=== PATIENT | female | born 1960 | race Caucasian/White ===

== ENCOUNTER → 2020-01-08 | Outpatient (CLI) | payer OTHER ==
--- NOTE | 2020-01-16 12:10 | ECHOF ---
Referral Reason:Q25.0 Patent ductus arteriosus MEASUREMENTS -------- HEIGHT: 170.2 cm WEIGHT: 122.5 kg BP: RVIDd: 3.2 cm (< 3.3) IVSd: 1.1 cm (0.6 - 1.1) LVIDd: 4.9 cm (3.9 - 5.3) LVPWd: 1.2 cm (0.6 - 1.1) IVSs: 1.7 cm LVIDs: 2.2 cm LVPWs: 1.5 cm LA Diam: 4.9 cm (2.7 - 3.8) LAESV Index (A-L): 16.61 ml/m Ao Diam: 2.7 cm (2.0 - 3.7) AV Cusp: 2.2 cm (1.5 - 2.6) LA Diam: 4.0 cm (2.7 - 3.8) MV EXCURSION: 16.312 mm (> 18.000) MV EF SLOPE: 55 mm/s (70 - 150) EPSS: 0.6 cm MV E William: 0.54 m/s MV DecT: 149 ms MV A William: 0.93 m/s MV E/A Ratio: 0.58 RAP: 5.00 mmHg RVSP: 23.57 mmHg FINDINGS -------- Sinus rhythm. This was a technically adequate study. The left ventricular size is normal. There is borderline concentric left ventricular hypertrophy. Overall left ventricular systolic function is normal with, an EF between 55 - 60 %. The diastolic filling pattern is normal for the age of the patient 9.61. The right ventricle is normal in size. The left atrium is moderately dilated. Normal LA size by volume 22+/-6 ml/m2. The right atrial size is normal. Unable to visualize I.A.S. The aortic valve is trileaflet and appears structurally normal. The mitral valve is normal. The mitral valve leaflets are mildly thickened. There is trace mitral regurgitation. The tricuspid valve appears structurally normal. Mild tricuspid regurgitation present. Right vent ricular systolic pressure is normal at < 35 mmHg. Pulmonic valve appears structurally normal. Trace/mild (physiologic) pulmonic regurgitation. The aortic root size is normal. Normal inferior vena cava with normal inspiratory collapse consistent with estimated right atrial pre ssure of 5 mmHg. There is no pericardial effusion. CONCLUSIONS -------- 1. Sinus rhythm. 2. This was a technically adequate study. 3. The left ventricular size is normal. 4. There is borderline concentric left ventricular hypertrophy. 5. Overall left ventricular systolic function is normal with, an EF between 55 - 60 %. 6. The diastolic filling pattern is normal for the age of the patient 9.61 7. The right ventricle is normal in size. 8. The left atrium is moderately dilated. 9. Normal LA size by volume 22+/-6 ml/m2. 10. The right atrial size is normal. 11. Unable to visualize I.A.S. 12. The aortic valve is trileaflet and appears structurally normal. 13. The mitral valve is normal. 14. The mitral valve leaflets are mildly thickened. 15. There is trace mitral regurgitation. 16. The tricuspid valve appears structurally normal. 17. Mild tricuspid regurgitation present. 18. Right ventricular systolic pressure is normal at < 35 mmHg. 19. Pulmonic valve appears structurally normal. 20. Trace/mild (physiologic) pulmonic regurgitation. 21. The aortic root size is normal. 22. Normal inferior vena cava with normal inspiratory collapse consistent with estimated right atrial pressure of 5 mmHg. 23. There is no pericardial effusion. INCLUSION INTERN: Afshan Ku RDCS
== END | disposition home or self-care (01) ==
LOC: RADECHMAIN 15:31
PROVIDERS: ATTEND Family Medicine
DX: I08.8 Other rheumatic multiple valve diseases (principal)
CPT/HCPCS: 93306

== ENCOUNTER 2022-06-18 11:28 | Emergency (ER) | payer OTHER ==
[2022-06-18 11:45] VITALS: RESP 18
[2022-06-18] MEDS ORDERED: IPRATROPIUM-ALBUTEROL 3 ML NEB INHALATION STA ×2 (12:03→13:04)
[2022-06-18] MEDS ORDERED: ALBUTEROL HFA INHALER INHALATION STA (12:12)
--- NOTE | 2022-06-18 12:29 | ED ---
URI HPI - General Chief Complaint: Upper Respiratory Infection Stated Complaint: EMILIANO Time Seen by Provider: 06/18/22 11:52 Source: patient Mode of arrival: ambulatory Limitations: no limitations - History of Present Illness Initial Comments: Patient is a 62-year-old female presenting with chief complaint of URI-like symptoms. Patient has had a cough for the last 5 days. She admits to some difficulty breathing due to this cough. She admits to chest soreness from packing, no chest pain. Patient has vomited once due to coughing vigorously, no abdominal pain or nausea. She admits to headache. She has been using her albuterol inhaler which is minimally helpful. Patient has had pneumonia in the past and wants to make sure she does not have pneumonia at this time. No congestion or sinus pain or ear pain or sore throat. - Related Data Previous Rx's Medication Instructions Recorded methylPREDNISolone Dose Pack 4 mg PO DIRECTED #1 packet 06/18/22 [Medrol Dose Pack] Allergies Allergy/AdvReac Type Severity Reaction Status Date / Time No Known Allergies Allergy Verified 06/18/22 11:39 Review of Systems ROS Statement: Those systems with pertinent positive or pertinent negative responses have been documented in the HPI. ROS Other: All systems not noted in ROS Statement are negative. Past Medical History Past Medical History: GERD/Reflux History of Any Multi-Drug Resistant Organisms: MRSA Date of last positivie culture/infection: 2019 MDRO Source:: B hands Past Surgical History: Hysterectomy Additional Past Surgical History / Comment(s): nissunfundlipication Past Psychological History: Anxiety, Depression Smoking Status: Never smoker Past Alcohol Use History: None Reported Past Drug Use History: None Reported General Exam Limitations: no limitations General appearance: alert, in no apparent distress Head exam: Present: atraumatic, normocephalic, normal inspection Eye exam: Present: normal appearance ENT exam: Present: normal exam Neck exam: Present: normal inspection. Absent: tenderness Respiratory exam: Present: normal lung sounds bilaterally. Absent: respiratory distress, wheezes, rales, rhonchi, stridor Cardiovascular Exam: Present: regular rate, normal rhythm, normal heart sounds. Absent: systolic murmur, diastolic murmur, rubs, gallop, clicks Neurological exam: Present: alert, oriented X3, CN II-XII intact Psychiatric exam: Present: normal affect, normal mood Skin exam: Present: warm, dry, intact, normal color. Absent: rash Course Vital Signs 06/18/22 06/18/22 11:42 14:07 Temperature 98 F 98.2 F Pulse Rate 102 H 88 Respiratory 18 18 Rate Blood Pressure 136/81 129/78 O2 Sat by Pulse 97 98 Oximetry Medical Decision Making - Medical Decision Making Patient is a 62-year-old female presenting with chief complaint of cough. Patient has had worsening cough and at times shortness of breath during coughing fits. On physical examination her lungs are clear to auscultation and normal HEENT exam. Patient received 2 puffs of albuterol inhaler here in the ER. She tested negative for coronavirus influenza A and B. Chest x-ray shows no acute process. Patient's symptoms are likely due to viral bronchitis. I offered the patient and do not appear in the ER, she declined at this time stating that she felt better after the albuterol inhaler. Patient does not need refills for her albuterol inhaler at home, Medrol Dosepak is prescribed. Follow-up with PCP. Report back to ER with any new or worsening symptoms. Discussed return parameters and answered all questions. Patient conveyed verbal understanding and agreed to the plan. I discussed this case in detail with my attending Dr. Cervantes - Lab Data Lab Results 06/18/22 06/18/22 Range/Units 12:18 12:18 Coronavirus (PCR) Not Detected (Not Detectd) Influenza Type A RNA Not Detected (Not Detectd) Influenza Type B (PCR) Not Detected (Not Detectd) Disposition Clinical Impression: Bronchitis Disposition: HOME SELF-CARE Condition: Good Instructions (If sedation given, give patient instructions): Acute Bronchitis (ED) Additional Instructions: Follow-up with PCP. Report back to ER with any new or worsening symptoms. Take medication as prescribed. Prescriptions: methylPREDNISolone Dose Pack [Medrol Dose Pack] 4 mg PO DIRECTED #1 packet Is patient prescribed a controlled substance at d/c from ED?: No Referrals: Jim Jernigan DO [Primary Care Provider] - 1-2 days Time of Disposition: 13:30
--- NOTE | 2022-06-18 13:03 | XR ---
EXAMINATION TYPE: XR chest 2V DATE OF EXAM: 06/18/2022 COMPARISON: NONE HISTORY: Cough TECHNIQUE: Frontal and lateral views of the chest are obtained. FINDINGS: There is no focal air space opacity, pleural effusion, or pneumothorax seen. The cardiac silhouette size is within normal limits. The osseous structures are intact. IMPRESSION: No acute cardiopulmonary process.
[2022-06-18] MEDS ORDERED: DEXAMETHASONE SOD PHOSPHATE 10 MG/ML 1 ML VIAL IM STA (13:30)
[2022-06-18 14:07] VITALS: BP 129/78; PULSE 88; TEMP 98.2
== END 2022-06-18 14:07 | disposition home or self-care (01) ==
LOC: EC 11:28
DX: J40 Bronchitis, not specified as acute or chronic (principal); F32.A Depression, unspecified; F41.9 Anxiety disorder, unspecified; Z20.822 Contact with and (suspected) exposure to COVID-19
CPT/HCPCS: 94640; 87502; 87635; 71046; 99285; 96372; J1100

== ENCOUNTER → 2024-01-23 | Outpatient (CLI) | payer SELFPAY | END | disposition home or self-care (01) | LOC: LABPAT 11:01 | PROVIDERS: ATTEND Orthopaedic Surgery | DX: Z01.812 Encounter for preprocedural laboratory examination (principal); M16.12 Unilateral primary osteoarthritis, left hip; Z22.322 Carrier or suspected carrier of Methicillin resistant Staphylococcus aureus | CPT/HCPCS: 85730; 86850; 86900; 86901; 87070 ==

== ENCOUNTER 2024-02-01 10:58 | Day surgery (SDC) | payer SELFPAY ==
[2024-01-29 11:09] VITALS: BMI 40.3
[~2024-02-01 10:58] MED LIST: MIDAZOLAM 2 MG/2 ML VIAL IV PRN; TRANEXAMIC 1,000 MG/100ML-NACL 1,000 MG in SALINE 1 100ML.BAG IV PRN; TRANEXAMIC 1,000 MG/100ML-NACL 1,000 MG in SALINE 1 100ML.BAG IVPB PRN
[2024-02-01] MEDS: IV FLUID CONTINUATION 1,000 ML IV ONE ×2 (11:29→15:50)
[2024-02-01] MEDS: LACTATED RINGERS 1,000 ML IV SCH (11:52)
[2024-02-01] MEDS: oxyCODONE ER 10 MG TAB.ER.12H PO PRN (11:53)
[2024-02-01] MEDS: ACETAMINOPHEN TAB 500 MG TAB PO PRN (11:53)
[2024-02-01] MEDS: DOCUSATE 100 MG CAP PO PRN (11:53)
[2024-02-01] MEDS: FAMOTIDINE 20 MG/2 ML VIAL IVP PRN (11:54)
[2024-02-01] MEDS: ONDANSETRON 4 MG/2 ML VIAL IVP PRN (11:55)
[2024-02-01] MEDS: DEXAMETHASONE SOD PHOSPHATE 10 MG/ML 1 ML VIAL IV PRN (11:55)
[2024-02-01] MEDS: KETOROLAC 15 MG/ML 1 ML VIAL IVP PRN (11:56)
[2024-02-01] MEDS: MIDAZOLAM 2 MG/2 ML VIAL IVP ONE (12:45)
[2024-02-01] MEDS: fentaNYL (PF) 50 MCG/ML 2 ML AMP IVP ONE (12:46)
--- NOTE | 2024-02-01 12:57 | P.ANPRN ---
Procedure Note - Anesthesia - Nerve Block Performed Left Darinel Single Time Out Performed: Yes Date of Procedure: 02/01/24 Procedure Start Time: 12:45 Procedure Stop Time: 12:54 Location of Patient: PreOp Indication: Acute Post-Operative Pain, Requested by Surgeon Sedation Type: Sedate with meaningful contact maintained Preparation: Sterile Prep Position: Supine Needle Types: Pajunk Needle Gauge: 21 Ultrasound used to visualize needle placement: Yes Ultrasound used to observe medication spread: Yes Injectate: 0.5% Ropivacaine (see comment for volume) (30 ml + 4 mg Dexamethas one) Blood Aspirated: No Pain Paresthesia on Injection Noted: No Resistance on Injection: Normal Image Stored and Saved: Yes Events: Uneventful and Well Tolerated
[2024-02-01] MEDS ORDERED: NEOSTIGMINE 1 MG/ML 10 ML VIAL ONE (13:36)
[2024-02-01] MEDS ORDERED: MIDAZOLAM 2 MG/2 ML VIAL ONE (13:36)
[2024-02-01] MEDS ORDERED: PHENYLEPHRINE 10 MG/ML VIAL ONE (13:36)
[2024-02-01] MEDS ORDERED: GLYCOPYRROLATE 0.2 MG/ML 2 ML VIAL ONE (13:36)
[2024-02-01] MEDS ORDERED: TRANEXAMIC 1,000 MG/100ML-NACL PREMIX BAG ONE (13:36)
[2024-02-01] MEDS ORDERED: fentaNYL (PF) 50 MCG/ML 2 ML AMP ONE (13:36)
[2024-02-01] MEDS ORDERED: SUCCINYLCHOLINE CHLORIDE 200 MG/10 ML VIAL IV ONE (13:36)
[2024-02-01] MEDS ORDERED: ROPIVACAINE 5 MG/ML 30 ML VIAL ONE (13:36)
[2024-02-01] MEDS ORDERED: DEXAMETHASONE SOD PHOSPHATE 4 MG/ML 1 ML VIAL ONE (13:36)
[2024-02-01] MEDS ORDERED: PROPOFOL 10 MG/ML 20 ML VIAL IV ONE (13:36)
[2024-02-01] MEDS ORDERED: ROCURONIUM 10 MG/ML (5 ML VIAL) IV ONE (13:36)
[2024-02-01] MEDS: ROPIVACAINE/EPI/CLONIDINE/KET 50 ML SYRINGE MISCELLANE PRN (14:17)
[2024-02-01] MEDS: VANCOMYCIN 1,000 MG VIAL MISCELLANE ONE (15:22)
[2024-02-01] MEDS: LACTATED RINGERS 1,000 ML IV ONE (15:38)
[2024-02-01] MEDS ORDERED: NALOXONE 0.4 MG/ML 1 ML VIAL IV PRN (15:39)
[2024-02-01] MEDS ORDERED: HYDROcodone/APAP 5-325MG 1 EACH TAB PO PRN (15:39)
[2024-02-01] MEDS ORDERED: MAGNESIUM HYDROXIDE 2,400 MG/30 ML CUP PO PRN (15:39)
[2024-02-01] MEDS ORDERED: HYDROmorphone 0.5 MG/0.5 ML SYRINGE IVP PRN ×2 (15:39)
--- NOTE | 2024-02-01 15:46 | FL ---
EXAMINATION TYPE: FL guidance operating room Intraoperative/procedural fluoroscopic services were pro vided. Total fluoroscopy time is 45 seconds with a total of 6 submitted images to PACS. Please see th e operative/procedural note for further details. DAP: 3.2584 mGym2 Gycm2 uGym2 cGycm2
[2024-02-01] MEDS: HYDROmorphone 0.5 MG/0.5 ML SYRINGE IVP PRN (16:14)
--- NOTE | 2024-02-01 16:17 | P.OP ---
Date of Procedure: 02/01/24 Preoperative Diagnosis: 1. Severe left hip osteoarthritis 2. BMI 40.5 Postoperative Diagnosis: Same Procedure(s) Performed: 1. Left complex direct anterior total hip arthroplasty 2. Application of negative pressure incisional wound VAC, left hip, < 50sq cm, incision measuring 20-cm Implants: 1. Aaron Trident II Acetabular Cup, Size #48 2. Aaron Insignia Size # 4 Femoral Stem, Standard Offset 3. Dual Mobility OD 38 mm, ID 22.2 mm, +0-mm neck Anesthesia: WAQAR, regional Surgeon: Max Mccoy Bobbin Doffer #1: Wyatt Fonseca Estimated Blood Loss (ml): 300 IV fluids (ml): 800 Pathology: none sent Condition: stable Disposition: PACU Indications for Procedure: I had a long discussion with the patient in the office on the potential risks and complications of an elective total hip replacement through a direct anterior approach. Risks discussed include, but are certainly not limited to, risks from anesthesia, superficial infection requiring local wound care or antibiotics, deep mya-prosthetic joint infection and the treatment required to eradicate infection, intraoperative fracture, postoperative periprosthetic fracture, damage to local blood vessels or nerves particularly the lateral femoral cutaneous nerve, delayed wound healing requiring local wound care or possibly surgical debridement, hip dislocation, leg length discrepancy, soft tissue irritation around the total hip implant such as iliopsoas tendinitis or trochanteric bursitis, wear and osteolysis from the implants, squeaking or audible noises, groin pain, thigh pain, heterotopic ossification, stiffness, aseptic loosening of the implants, dissatisfaction with surgical outcome, need for revision surgery, DVT, PE, swelling of the operative extremity, acute coronary event, stroke, failure to thrive, and possibly loss of life or limb. The patient understands that while these are the most common complications after an elective hip replacement there are certainly other less common complications possible. They were given ample time to ask questions regarding the potential complications of a hip replacement. Following our discussion the patient provided their verbal and written consent to go forward with an elective total hip replacement. Operative Findings: the patient had severe end-stage osteoarthritis with complete cartilage loss on the femoral head and acetabulum. Description of Procedure: The patient was identified in the preoperative holding area and the correct hip was marked with my initials. I reviewed the procedure and consent with the patient. All of their questions were answered. The patient was then brought back into the operating room by anesthesia. While on the [facility] anesthesia was administered by the anesthesia team. Preoperative antibiotics and tranexamic acid were also given. After the patient was under anesthesia I examined their ankles to determine their preoperative leg length discrepancy. The skin over the anterior aspect of the hip was shaved to remove hair over the site of planned incision. Both feet and ankles were padded with webril and boots for the Delano were applied. The patient was then carefully transferred onto the Delano table. A perineal post was immediately placed. The arms were placed on arm holders and were well-padded. Both boots were secured to the spars on the Delano table. The patient was positioned so that the pelvis was centered over the post. Nonsterile drapes were applied. A timeout was performed identifying the correct patient, operative extremity, and procedure. At this point fluoroscopy was brought in to take preoperative images of the pelvis and operative hip. Using the standing AP pelvis from the office as a template, a comparable image was obtained with fluoroscopy. A metallic bar was used to create a bi-ischial line for use as a reference to leg length adjustments during the procedure. Global offset was also measured on both the operative and nonoperative leg. Fluoroscopy was then brought out and a pre-scrub using a chlorhexidine scrub brush was performed. The operative limb was then prepped and draped in the standard sterile fashion. An anterior longitudinal incision was made lateral and distal to the ASIS. The skin and subcutaneous tissues were incised sharply. The underlying tensor fascia was identified and incised in its midportion. The fascia was dissected free from the underlying muscle and the muscle belly was retracted. A blunt tipped cobra retractor was placed over the superior neck under the muscle fibers of the gluteus minimus. The deep enveloping fascia of the tensor was incised. The anterior leash of vessels were then identified and cauterized. The fascia between the rectus and the capsule was then incised and the pre-capsular fat was excised. A second Cobra was placed inferior to the neck. The interval between the rectus and iliocapsularis and the hip capsule was developed and a retractor was placed carefully over the anterior rim of the acetabulum. A T-shaped anterior capsulotomy was performed. The superior capsular leaflet was left in place in the inferior capsular flap was excised. The Cobra retractors were placed intracapsularly. We then made a femoral neck osteotomy according to preoperative and intraoperative templating and confirmed the level of the osteotomy using fluoroscopic imaging. The femoral head was removed, passed off to the back table, and sized. The superior capsular flap was excised. Retractors were placed circumferentially exposing the acetabulum. We then circumferentially debrided the acetabulum free of labrum and osteophytes. The pulvinar was removed to fully visualize the cotyloid fossa. We then sequentially reamed to achieve peripheral fit and excellent bleeding subchondral bone. The socket was thoroughly irrigated. The acetabular component was impacted into the appropriate position using fluoroscopy to guide version, inclination, and depth of insertion taking care to have a comparable image of the AP pelvis to the standing image taken in the office. An excellent press-fit was achieved and final position was confirmed using fluoroscopy. The press fit was augmented with bony cancellus dome screws. The liner was then impacted into the socket. Attention was then turned to the femur. The remnant dorsal lateral capsule was excised. The short external rotators were visible and protected. A bone hook was used to confirm appropriate translation of the trochanter away from the acetabulum. The leg was then extended and adducted and the bone hook was used to elevate the femur for broaching. A box osteotome and blunt tipped canal sound was then utilized to gain access to the femoral canal. We then sequentially broached the femur in appropriate anteversion until excellent torsional stability was achieved. The neck cut was brought flush to the trial broach with a calcar planar. A trial neck and head were then placed onto the broach and the hip was atraumatically reduced under direct visualization. External rotation to 90 was performed to assess stability. Fluoroscopy was brought in. An AP and lateral fluoroscopic image of the proximal femur was obtained to assess position and fill of the trial broach. An AP of the pelvis was then obtained and matched to the preoperative image taken. A bi-ischial bar was then placed and measurements were taken to assess changes in length and offset. The hip was then carefully dislocated, the proximal femur was exposed, and the trial implants were removed. The wound and proximal femur was thoroughly irrigated using sterile saline and pulsatile lavage. The final femoral implant was dispensed and gently tapped into place generating an excellent press-fit. The trunnion was cleansed and the final head was tapped into place to engage the Goddard taper. The acetabulum was irrigated and visualized to be free of debris. The hip was carefully reduced. Stability was checked clinically with external rotation to 90 and there was no evidence of instability. Final fluoroscopic images were taken. The wound was then thoroughly irrigated and soaked with a dilute Betadine rinse for 3 minutes. 3 L of sterile saline was irrigated through the wound using pulsatile lavage. Local anesthetic cocktail was injected into the soft tissues around the surgical field. The wound was then closed in layers. An incisional wound VAC was placed over the closed incision to help lower the risk of delayed wound healing and surgical site infection. After connecting the wound VAC to it's power source, there was an excellent seal. The drapes were taken down and the patient was carefully transferred off of the Delano table. Following removal of the boots the leg lengths felt acceptable. The patient was then taken to recovery room having tolerated the procedure well. Wyatt Fonseca PA-C was required as a skilled kitchen assistant due to the complexity of the procedure for patient positioning, draping, exposure, retraction, closure of wound and application of dressing. . PLAN: The patient can weight-bear as tolerated on the operative extremity. 2 doses of postoperative antibiotics followed by doxycycline 100 mg BID until her incision heals. DVT prophylaxis with aspirin 81 mg twice a day based on preoperative risk stratification. Physical therapy for gait training.
[2024-02-01] MEDS: SODIUM CHLORIDE 0.9% 1,000 ML IV SCH (16:48)
--- NOTE | 2024-02-01 16:57 | XR ---
Fluoroscopy INDICATION: Pain FINDINGS: Fluoroscopy time: 45 seconds. Total dose area product (DAP) in uGy*m?, mGy*cm? (or similar): 3.2584 Images obtained: 7. IMPRESSION: 1. Documentation of fluoroscopy.
[2024-02-01] MEDS: HYDROcodone/APAP 10-325MG 1 EACH TAB PO PRN (18:00)
[2024-02-01] MEDS: HYDROmorphone 1 MG/ML 1 ML SYRINGE IVP PRN (22:05)
[2024-02-01] MEDS: ASPIRIN 81 MG PO SCH (22:06)
[2024-02-01] MEDS: SENNOSIDES-DOCUSATE SODIUM 1 EACH TAB PO SCH (22:06)
[2024-02-02 02:56] VITALS: RESP 16; TEMP 98.1
[2024-02-02] MEDS: hydrOXYzine pamoate 25 MG CAP PO PRN (05:37)
--- NOTE | 2024-02-02 07:15 | P.DS ---
Providers Date of admission: 02/01/2024 Attending physician: Max Mccoy Consults: 02/01/24 15:39 Consult Physician Routine Consulting Provider: Jim Jernigan Consult Reason/Comments: post op medical management Do you want consulting provider notified?: Yes Primary care physician: Jim Jernigan [facility] Course: The patient is a very pleasant relatively healthy 63-year-old female who was adm itted under my care yesterday and underwent an uncomplicated left total hip replacement. Following surgery she was transferred to the orthopedic floor. She received 2 doses of postoperative antibiotics. She was transitioned from IV to oral pain medications. She was started on aspirin for DVT prophylaxis. The patient was seen on postoperative day #1 and was doing well. Her pain was relatively well controlled. Femoral nerve function was intact. She was able to actively plantarflex and dorsiflex her ankle and her toes. Internal medicine has been consulted. Physical therapy has been consulted. We will plan on discharging the patient home later today if she passes physical therapy and is comfortable. Plan - Discharge Summary Discharge Rx Participant: No New Discharge Prescriptions: New Docusate [Colace] 100 mg PO BID #60 capsule HYDROcodone/APAP 5-325MG [Chevak 5] 1 each PO Q6HR PRN #28 tab PRN Reason: Pain Ondansetron [Zofran] 4 mg PO Q6HR PRN #30 tab PRN Reason: Nausea Aspirin 81 mg PO BID #60 tab No Action Omeprazole [PriLOSEC] 10 mg PO DAILY PRN PRN Reason: REFLUX Ibuprofen 800 mg PO BID PRN PRN Reason: Pain HYDROcodone/APAP 5-325MG [Chevak 5-325] 1 tab PO Q6HR PRN PRN Reason: Pain Mupirocin 2% Oint [Bactroban 2% Oint] 1 applic NASAL BID Discharge Medication List HYDROcodone/APAP 5-325MG [Chevak 5-325] 1 tab PO Q6HR PRN 01/29/24 [History] Ibuprofen 800 mg PO BID PRN 01/29/24 [History] Mupirocin 2% Oint [Bactroban 2% Oint] 1 applic NASAL BID 01/29/24 [History] Omeprazole [PriLOSEC] 10 mg PO DAILY PRN 01/29/24 [History] Aspirin 81 mg PO BID #60 tab 02/01/24 [Rx] Docusate [Colace] 100 mg PO BID #60 capsule 02/01/24 [Rx] HYDROcodone/APAP 5-325MG [Chevak 5] 1 each PO Q6HR PRN #28 tab 02/01/24 [Rx] Ondansetron [Zofran] 4 mg PO Q6HR PRN #30 tab 02/01/24 [Rx] Follow up Appointment(s)/Referral(s): Max Mccoy MD [Medical Doctor] - 2 Weeks (In office) Activity/Diet/Wound Care/Special Instructions: 1. Weight-bear as tolerated on your operative extremity unless instructed otherwise. Use a walker or other assistive device to ambulate. 2. Leave surgical dressing or wound vac in place. If your dressing becomes saturated with blood, there is drainage, or the dressing becomes loose please contact the office. 3. It is okay to shower with your surgical dressing, but do not submerge in water (no hot tubs, bath's, swimming etc.) 4. Take your blood clot prevention medication as prescribed (aspirin, Eliquis, Xarelto, and Plavix are commonly prescribed medications for blood clot prevention) 5. While taking Chevak or Percocet for pain take a stool softener (Ex: Colace) and drink lots of water. 6. Keep all follow-up appointments as scheduled. You will usually be seen in 1-2 weeks following surgery. 7. Please contact the office with any questions or concerns [phone] Discharge Disposition: HOME WITH HOME HEALTH SERVICES
[2024-02-02 08:32] VITALS: BP 100/63; PULSE 75
[2024-02-02 09:20] LABS: Basophils # (A) 0.01 X 10*3/uL (0.00-0.10); Basophils % (A) 0.1 %; Eosinophils # (A) 0 X 10*3/uL (0.04-0.35); Eosinophils % (A) 0 %; HCT 32.9 % (37.2-46.3); HGB 10.7 g/dL (12.0-15.0); Lymphocytes # (A) 0.75 X 10*3/uL (0.90-5.00); Lymphocytes % (A) 5.8 %; MCH 27.6 pg (27.0-32.0); MCHC 32.5 g/dL (32.0-37.0); MCV 84.8 FL (80.0-97.0); Mean Platelet Volume 11.1 FL (9.5-12.2); Monocytes # (A) 0.82 X 10*3/uL (0.20-1.00); Monocytes % (A) 6.4 %; NRBC Per 100 WBC 0 X 10*3/uL (0.00-0.01); Neutrophils # (A) 11.23 X 10*3/uL (1.80-7.70); Neutrophils % (A) 87.3 %; Platelet Count 239 X 10*3/uL (140-440); RBC 3.88 X 10*6/uL (4.10-5.20); RDW 15.2 % (11.5-14.5); WBC 12.86 X 10*3/uL (4.50-10.00)
== END 2024-02-02 11:46 | disposition home health service (06) ==
LOC: OR 10:58 → 4SSUR 16:04 → OR 02-02 11:46
PROVIDERS: ATTEND Orthopaedic Surgery
DX: M16.12 Unilateral primary osteoarthritis, left hip (principal); M25.752 Osteophyte, left hip; G89.18 Other acute postprocedural pain; K21.9 Gastro-esophageal reflux disease without esophagitis; E66.9 Obesity, unspecified; Z68.41 Body mass index [BMI] 40.0-44.9, adult; Z87.891 Personal history of nicotine dependence; Z79.899 Other long term (current) drug therapy; Z79.82 Long term (current) use of aspirin
CPT/HCPCS: 97110; 97163; 85025; 73501; 27130; 64447; 97607; J2250; J3370; J1100; J0690 ×2; J2405; J3010; J3490; J1170 ×2; J1885